=== PATIENT | female | born 1980 | race Caucasian/White ===

== ENCOUNTER 2016-11-14 18:10 | Emergency (ER) | payer OTHER ==
[~2016-11-14] VITALS: Ht 162.6 cm; Wt 68.0 kg
[~2016-11-14 18:10] MED LIST: BACT PO
[2016-11-14 18:13] VITALS: BP 128/73; PULSE 109; RESP 18; TEMP 100; O2SAT 99
[2016-11-14 18:21] LABS: BLOOD, URINE LARGE (NEG); GLUCOSE,URINE NEG (NEG); KETONE, URINE TRACE mg/dL (NEG); NITRITE,URINE NEG (NEG); PH, URINE 6.5 (5.0-8.5)
[2016-11-14 18:28] LABS: BACTERIA, URINE MOD /hpf; COMMENT (UR) CULTURE INDICATED; COMMENT2 (UR) MUCOUS PRESENT; CULTURE IF INDICATED CULTURE INDICATED; METHOD OF COLLECTION CLEAN CATCH; SQUAMOUS EPITHELIAL CELL URINE 0-5 /hpf (0-5); URINE COLOR YELLOW (YELLW/STRAW)
[2016-11-14] MEDS ORDERED: IBUP-1129 PO (18:34)
[2016-11-14] MEDS ORDERED: MACR100C2 PO (18:34)
--- NOTE | 2016-11-14 18:35 | PD ---
HPI Chief Complaint: Fever Time Seen by Provider: 18:29 Travel History International Travel<30 days: No Contact w/Intl Traveler<30days: No Traveled to known affect area: No History of Present Illness HPI 36-year-old female patient presents to the ER for several days history of fatigue, fevers, and lower back pain. She denies any injuries. She also states she has been nauseous and had a few episodes of diarrhea yesterday. She denies any significant abdominal pain, urinary symptoms, vaginal discharge, or any other issues. Modifying Factors: None Associated Signs & Symptoms: Fevers, lower back discomfort, diarrhea Risk Factors: None PFSH Past Medical History Anxiety: Yes Cancer: Yes (PRECANCER ON NOSE) Diminished Hearing: No Immunizations Current: Yes ?: Not LMP: 11/2016 Miscarriage: 1 Past Surgical History Section: Yes (X2) Other Surgery: Yes (BREAST AUGMENTATION) Social History Alcohol Use: Yes (RARE-BEER) Tobacco Use: Yes (1 PPD) Substance Use: No Allergies-Medications (Allergen,Severity, Reaction): Coded Allergies: No Known Allergies (Verified , 11/14/16) Reported Meds & Prescriptions Reported Meds & Active Scripts Active No Active Prescriptions or Reported Medications Review of Systems Except as stated in HPI: all other systems reviewed are Neg Physical Exam Narrative GENERAL: Young white female patient currently in mild distress. Awake and oriented 3. SKIN: Focused skin assessment warm/dry. HEAD: Atraumatic. Normocephalic. EYES: Pupils equal and round. No scleral icterus. No injection or drainage. ENT: No nasal bleeding or discharge. Mucous membranes pink and moist. NECK: Trachea midline. No JVD. CARDIOVASCULAR: Regular rate and rhythm. No murmur appreciated. RESPIRATORY: No accessory muscle use. Clear to auscultation. Breath sounds equal bilaterally. GASTROINTESTINAL: Abdomen soft, mild suprapubic tenderness without guarding or rebound, nondistended. Hepatic and splenic margins not palpable. BACK: No CVA tenderness. No rash. No point tenderness on palpation of the spine. MUSCULOSKELETAL: No obvious deformities. No clubbing. No cyanosis. No edema. NEUROLOGICAL: Awake and alert. No obvious cranial nerve deficits. Motor grossly within normal limits. Normal speech. PSYCHIATRIC: Appropriate mood and affect; insight and judgment normal. Data Data Last Documented VS Vital Signs Date Time Temp Pulse Resp B/P Pulse Ox O2 Delivery O2 Flow Rate FiO2 11/14/16 18:13 100.0 109 18 128/73 99 Orders Urinalysis - C+S If Indicated (11/14/16 18:12) Ed Urine Pregnancytest Poc (11/14/16 18:12) Urine Culture (11/14/16 18:15) Labs Laboratory Tests Test 11/14/16 18:15 Urine Collection Type CLEAN CATCH Urine Color YELLOW Urine Turbidity SLIGHT Urine pH 6.5 Urine Specific [place] 1.028 Urine Protein TRACE mg/dL Urine Glucose (UA) NEG mg/dL Urine Ketones TRACE mg/dL Urine Occult Blood LARGE Urine Nitrite NEG Urine Bilirubin NEG Urine Leukocyte Esterase SMALL Urine RBC 10-14 /hpf Urine WBC 20-24 /hpf Urine WBC Clumps OCC Urine Squamous Epithelial 0-5 /hpf Cells Urine Amorphous Sediment FEW Urine Bacteria MOD /hpf Microscopic Urinalysis Comment CULTURE INDICATED Urine Collection Time 1815 MDM Medical Decision Making Medical Screen Exam Complete: Yes Emergency Medical Condition: Yes Medical Record Reviewed: Yes Differential Diagnosis Lower back discomfort, fever, nauseaUTI Narrative Course Lab work is significant for UTI. Patient is not . At this point, my plan would be to release her with antibiotic treatment for UTI. Return for any worsening in symptoms as needed. The plan has discussed with her and she states understanding. Diagnosis Primary Impression: UTI (urinary tract infection) Med/Other Pt SpecificInfo: Prescription(s) given Scripts Ibuprofen (Motrin Ib)200 Mg [id number] Mg PO QID PRN (PAIN SCALE 1 TO 10) #21 Prov:Francis John MD 11/14/16 Nitrofurantoin Monohydrate Macrocrystals (Macrobid)100 Mg [id number] Mg PO BID 7 Days Ref 0 Prov:Francis John MD 11/14/16 Disposition: DISCHARGE HOME Condition: Stable Francis John MD Nov 14, 2016 18:34
[2016-11-14] MEDS ORDERED: IBUPROFEN 600 MG TAB PO ONE (18:45)
[2016-11-14] MEDS ORDERED: ONDANSETRON ODT 4 MG TAB PO ONE (18:45)
[2016-11-14] MEDS ORDERED: NITROFURANTOIN MONOHYD MACROCR 100 MG CAP PO ONE (18:45)
== END 2016-11-14 18:51 | disposition home or self-care (01) ==
LOC: PHED 18:10
DX: N39.0 Urinary tract infection, site not specified (principal); B96.20 Unspecified Escherichia coli [E. coli] as the cause of diseases classified elsewhere; F17.200 Nicotine dependence, unspecified, uncomplicated
CPT/HCPCS: 81001; 84703; 87077; 87086; 87186; 99283